=== PATIENT | female | born 1960 | race Caucasian/White ===

== ENCOUNTER → 2016-12-06 | Outpatient (CLI) | payer BC ==
[~2016-12-06] MED LIST: CALC600T9 PO; CEFU500T16 PO; CHOL1000 PO; CRS/10 PO; DICL-201 PO; ESCI10TA17 PO; MULT-506 PO; OMEG10007 PO; ONDA4TAB65 PO; SULF500T36 PO; TAMS0.4C38 PO
--- NOTE | 2016-12-06 11:38 | DIAGNOSTIC IMAGING REPORT ---
CHEST 2 VIEWS ROUTINE CLINICAL HISTORY: 56 years-old Female presenting with NEPHROLITHIASIS. TECHNIQUE: PA and lateral views of the chest were obtained. COMPARISON: None. FINDINGS: Cardiomediastinal silhouette normal. Lungs and pleural spaces clear. Osseous structures normal. Upper abdomen normal. IMPRESSION: 1. No acute cardiopulmonary disease. Electronically signed by: Kwan Rubin M.D. 12/06/2016 11:36 AM Dictated Date/Time: 12/06/2016 11:36 AM
--- NOTE | 2016-12-06 12:43 | DIAGNOSTIC IMAGING REPORT ---
KUB HISTORY: NEPHROLITHIASIS COMPARISON: None. FINDINGS: The bowel gas pattern is unremarkable. There are no dilated loops of small bowel to suggest an obstruction. Difficult evaluation of renal shadows due to the overlying bowel gas. There is a persistent punctate density overlying the left 12th rib which could represent a punctate left renal stone. No right renal calculi. No ureteral calculi. No pneumoperitoneum or pneumatosis. IMPRESSION: Possible punctate stone within the left kidney. No right renal or ureteral calculi. Of note, the renal shadows are partially obscured by overlying bowel. Electronically signed by: Harsh Joyce M.D. 12/06/2016 12:42 PM Dictated Date/Time: 12/06/2016 12:39 PM
== END | disposition home or self-care (01) ==
LOC: C.RAD 10:35
PROVIDERS: ATTEND Urology
DX: N20.0 Calculus of kidney (principal)